=== PATIENT | female | born 1985 | race American Indian/Alaskan Native ===

== ENCOUNTER 2019-03-16 23:12 | Emergency (ER) | payer MEDICAID ==
[2019-03-17 01:00] LABS: Basophils % (Auto) 0.3 % (0.0-1.8); Eosinophils # (Auto) 0.2 K/mm3 (0.0-0.4); Eosinophils % (Auto) 4.2 % (0.0-4.3); Hematocrit 32.5 % (30.3-42.9); Hemoglobin 10.7 gm/dl (10.1-14.3); Lymphocytes # (Auto) 2.2 K/mm3 (1.2-5.4); Lymphocytes % (Auto) 47.2 % (13.4-35.0); Mean Corpuscular HGB Conc 33 % (30-34); Mean Corpuscular Volume 84 fl (79-97); Monocytes # (Auto) 0.3 K/mm3 (0.0-0.8); Monocytes % (Auto) 6.8 % (0.0-7.3); Platelet Count 317 K/mm3 (140-440); Red Blood Count 3.86 M/mm3 (3.65-5.03); Red Cell Distribution Width 17.9 % (13.2-15.2)
[2019-03-17] MEDS ORDERED: TYLENOL PO ONE (01:16)
[2019-03-17 01:29] LABS: BUN/Creatinine Ratio 19; Blood Urea Nitrogen 15 mg/dL (7-17); Calcium 8.7 mg/dL (8.4-10.2); Hemolysis Index 4
[2019-03-17 02:22] LABS: Bilirubin,Urine NEG (Negative); Blood,Urine NEG (Negative); Color,Urine Yellow (Yellow); Mucus,Urine 3+ /HPF; Protein,Urine <15 mg/dL mg/dL (Negative)
[2019-03-17 02:24] LABS: HCG Qualitative,Urine Negative (Negative)
[2019-03-17] MEDS ORDERED: XYLOCAINE 1% MPF 5 mL INFILTRATI ONE (02:30)
[2019-03-17] MEDS ORDERED: ROCEPHIN IM ONE (02:30)
[2019-03-17] MEDS ORDERED: ZITHROMAX PO ONE (02:30)
[2019-03-17] MEDS ORDERED: FLAGYL PO ONE (02:30)
[2019-03-17] MEDS ORDERED: TORADOL IM ONE (02:32)
[2019-03-17 02:59] LABS: Alanine Aminotransferase 7 units/L (7-56); Albumin 3.9 g/dL (3.9-5)
[2019-03-17 03:03] LABS: Bilirubin,Direct < 0.2 mg/dL (0-0.2)
--- NOTE | 2019-03-17 03:14 | Emergency Department Report ---
ED Female HPI - General Chief complaint: Urogenital-Female Stated complaint: PELVIC PAIN Time Seen by Provider: 03/17/19 01:10 Source: patient Mode of arrival: Ambulatory Limitations: No Limitations - History of Present Illness Initial comments: Patient is a A0 33 yo AA female who presents to the ED because of acute onset persistent suprapubic pain for the last 2 days with vaginal discharge. Patient denies fever, chills, nausea, vomiting, vaginal bleeding, low back pain, diarrhea, chest pain or shortness of breath or dyspareunia, sore throat, headache or neck pain and vision changes MD Complaint: vaginal discharge, pelvic pain -: Sudden (2) Location: suprapubic Radiation: suprapubic Severity: moderate Severity scale (0 -10): 5 Quality: cramping, sharp Consistency: intermittent Improves with: none Worsens with: intercourse, movement Are you Now?: No Last Menstrual Period: 03/06/19 EDC: 12/11/19 Associated Symptoms: denies other symptoms, vaginal discharge, abdominal pain. denies: vaginal bleeding, nausea/vomiting, fever/chills, headaches, loss of appetite, dysuria, hematuria, rash, seizure, shortness of breath, syncope, weakness, other - Related Data Sexually active: Yes : 2 Para: 2 A: 0 Previous Rx's Medication Instructions Recorded Last Taken Type DOXYCYCLINE Hyclate [Vibramycin 100 mg PO Q12HR #20 capsule 03/17/19 Unknown Rx CAP] Fluconazole [Diflucan TAB] 150 mg PO ONCE #1 tablet 03/17/19 Unknown Rx Naproxen [Naprosyn] 500 mg PO Q12H PRN #20 tablet 03/17/19 Unknown Rx Ondansetron [Zofran Odt] 4 mg PO Q6HR PRN #15 tab.rapdis 03/17/19 Unknown Rx metroNIDAZOLE [Flagyl] 500 mg PO Q12HR #14 tab 03/17/19 Unknown Rx Allergies Allergy/AdvReac Type Severity Reaction Status Date / Time No Known Allergies Allergy Unverified 03/17/19 00:11 ED Review of Systems ROS: Stated complaint: PELVIC PAIN Other details as noted in HPI Constitutional: denies: chills, fever Eyes: denies: eye pain, eye discharge, vision change ENT: denies: ear pain, throat pain Respiratory: denies: cough, shortness of breath, wheezing Cardiovascular: denies: chest pain, palpitations Endocrine: no symptoms reported Gastrointestinal: abdominal pain. denies: nausea, vomiting, diarrhea Genitourinary: urgency, discharge, other (pelvic pain). denies: dysuria Musculoskeletal: denies: back pain, joint swelling, arthralgia Skin: denies: rash, lesions Neurological: denies: headache, weakness, paresthesias Psychiatric: denies: anxiety, depression Hematological/Lymphatic: denies: easy bleeding, easy bruising ED Past Medical Hx - Past Medical History Previous Medical History?: No - Surgical History Past Surgical History?: No - Social History Smoking Status: Never Smoker Substance Use Type: None - Medications Home Medications: Home Medications Medication Instructions Recorded Confirmed Last Taken Type DOXYCYCLINE Hyclate [Vibramycin 100 mg PO Q12HR #20 capsule 03/17/19 Unknown Rx CAP] Fluconazole [Diflucan TAB] 150 mg PO ONCE #1 tablet 03/17/19 Unknown Rx Naproxen [Naprosyn] 500 mg PO Q12H PRN #20 tablet 03/17/19 Unknown Rx Ondansetron [Zofran Odt] 4 mg PO Q6HR PRN #15 tab.rapdis 03/17/19 Unknown Rx metroNIDAZOLE [Flagyl] 500 mg PO Q12HR #14 tab 03/17/19 Unknown Rx ED Physical Exam - General Limitations: No Limitations General appearance: alert, in no apparent distress - Head Head exam: Present: atraumatic, normocephalic, normal inspection - Eye Eye exam: Present: normal appearance, PERRL, EOMI. Absent: scleral icterus, conjunctival injection, nystagmus Pupils: Present: normal accommodation - ENT ENT exam: Present: normal exam, normal orophraynx, mucous membranes moist, TM's normal bilaterally, normal external ear exam - Neck Neck exam: Present: normal inspection, full ROM - Respiratory Respiratory exam: Present: normal lung sounds bilaterally. Absent: respiratory distress, wheezes, rales, rhonchi, chest wall tenderness, accessory muscle use - Cardiovascular Cardiovascular Exam: Present: regular rate, normal rhythm, normal heart sounds. Absent: systolic murmur, diastolic murmur, rubs, gallop - GI/Abdominal GI/Abdominal exam: Present: soft, tenderness (suprapubic), normal bowel sounds. Absent: hyperactive bowel sounds, hypoactive bowel sounds, organomegaly, mass - Rectal Rectal exam: Present: deferred - External exam: Present: normal external exam. 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 Absent: adnexal tenderness, adnexal mass - Extremities Exam Extremities exam: Present: normal inspection, normal capillary refill. Absent: full ROM, pedal edema - Back Exam Back exam: Present: normal inspection, full ROM. Absent: tenderness, CVA tenderness (R), CVA tenderness (L), muscle spasm, vertebral tenderness - Neurological Exam Neurological exam: Present: alert, oriented X3, CN II-XII intact, normal gait, reflexes normal - Psychiatric Psychiatric exam: Present: normal affect, normal mood - Skin Skin exam: Present: warm, dry, intact, normal color. Absent: rash ED Course - Reevaluation(s) Reevaluation #1: 03/17/19 03:37 Patient is alert and oriented 3 and is not in distress. Patient was treated for pain in the ED and based on the pelvic exam findings, patient was treated empirically for acute pelvic inflammatory disease in the ED and discharged home on more antibiotics and pain medications. Lab test results were unremarkable. 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 ED Medical Decision Making - Lab Data Result diagrams: 03/17/19 00:21 03/17/19 00:23 - Medical Decision Making Patient is alert and oriented 3 and is not in distress. Patient was treated for pain in the ED and based on the pelvic exam findings, patient was treated empirically for acute pelvic inflammatory disease in the ED and discharged home on more antibiotics and pain medications. Lab test results were unremarkable. 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 - Differential Diagnosis acuet pelvic pain; acute PID; Bacterial vaginosis, acute UTI Critical care attestation.: If time is entered above; I have spent that time in minutes in the direct care of this critically ill patient, excluding procedure time. ED Disposition Clinical Impression: Acute pelvic inflammatory disease (PID), Bacterial vaginosis Disposition: TO HOME OR SELFCARE Is pt being admited?: No Does the pt Need Aspirin: No Condition: Stable Instructions: Pelvic Inflammatory Disease (ED), Bacterial Vaginosis (ED) Additional Instructions: Take medications with food, drink plenty of fluids and follow up with your primary care physician in 7-10 days for reevaluation. Return to the ED immedi ately if symptoms get worse. Prescriptions: Fluconazole [Diflucan TAB] 150 mg PO ONCE #1 tablet metroNIDAZOLE [Flagyl] 500 mg PO Q12HR #14 tab Naproxen [Naprosyn] 500 mg PO Q12H PRN #20 tablet PRN Reason: Pain , Severe (7-10) DOXYCYCLINE Hyclate [Vibramycin CAP] 100 mg PO Q12HR #20 capsule Ondansetron [Zofran Odt] 4 mg PO Q6HR PRN #15 tab.rapdis PRN Reason: Nausea Referrals: [facility] [Outside] - 3-5 Days Forms: STI Treatment and Prevention Time of Disposition: 03:12 Print Language: ALBANIAN
== END 2019-03-17 03:56 | disposition home or self-care (01) ==
LOC: ED 23:12
DX: N73.0 Acute parametritis and pelvic cellulitis (principal); N76.0 Acute vaginitis; B96.89 Other specified bacterial agents as the cause of diseases classified elsewhere
CPT/HCPCS: 36415; 80048; 80076; 81001; 81025; 85025; 87086; 87210; 87591; 96372; 99284; J0696; J1885

== ENCOUNTER 2019-11-21 20:46 | Emergency (ER) | payer BC, MEDICAID, OTHER ==
--- NOTE | 2019-11-21 21:18 | Emergency Department Report ---
Blank Doc - Documentation Documentation: 34-year-old female that presents with vaginal discharge and pelvic pain. This initial assessment/diagnostic orders/clinical plan/treatment(s) is/are subject to change based on patient's health status, clinical progression and re- assessment by fellow clinical providers in the ED. Further treatment and workup at subsequent clinical providers discretion. Patient/guardians urged not to elope from the ED as their condition may be serious if not clinically assessed and managed. Initial orders include: 1- Patient sent to [facility] for further evaluation and treatment 2- UA 3- pelvic exam to be done
[2019-11-21 21:23] VITALS: BP 138/84
== END 2019-11-22 00:20 | disposition left against medical advice (07) ==
LOC: ED 20:46
DX: N89.8 Other specified noninflammatory disorders of vagina (principal); Z53.21 Procedure and treatment not carried out due to patient leaving prior to being seen by health care provider